=== PATIENT | female | born 2000 | race American Indian/Alaskan Native ===

== ENCOUNTER 2022-03-10 20:18 | Emergency (ER) | payer SELFPAY ==
[2022-03-10] MEDS ORDERED: BUTALB/ACETAMINOPHEN/CAFFEINE TAB PO ONE (21:42)
--- NOTE | 2022-03-10 21:53 | Emergency Department Report ---
HPI - General Chief Complaint: Seizure Time Seen by Provider: 03/10/22 21:29 - HPI HPI: Room 3 The patient is a 21-year-old female present with a chief complaint of seizure. Patient has a history of hemiplegic migraines and epilepsy and per mother has been compliant with her medication. This evening at 1915 the patient started having one of her seizure episodes when she began chewing. The mother tried to wait it out and gave her a total of 30 minutes to see if she stopped however when she continued EMS was called. EMS arrived and states they arrived on scene to find the patient experiencing facial grimacing with bilateral upper extremity tonic-clonic activity. Patient was administered Ativan 2 mg IV to 3 minutes later the seizure activity stopped and 6 minutes later the patient became responsive. In the ED the patient is still postictal with difficulty speaking (normal postictal presentation per mom). Patient complains of a headache and menstrual cramps. ED Past Medical Hx - Past Medical History Hx GERD: Yes Hx Headaches / Migraines: Yes (Hemiplegia migraine) Hx Seizures: Yes Hx Asthma: Yes Additional medical history: Vocal cord dysfunction, - Surgical History Additional Surgical History: Tonsil and adenoidectomy - Family History Family history: no significant - Social History Smoking Status: Never Smoker Substance Use Type: None (Denies illicit drug use) - Medications Home Medications: Home Medications Medication Instructions Recorded Confirmed Last Taken Type Butalb/Acetamin/Caff 50-325-40 2 tab PO Q8HR PRN #20 tablet 03/10/22 Unknown Rx [Fioricet 50-325-40] ED Review of Systems ROS: Stated complaint: SEIZURE Other details as noted in HPI Constitutional: no symptoms reported Eyes: denies: eye pain ENT: denies: throat pain Respiratory: no symptoms reported Cardiovascular: denies: chest pain Endocrine: no symptoms reported Gastrointestinal: abdominal pain Genitourinary: other (Menstrual cramps) Neurological: headache Physical Exam - Physical Exam Vital Signs: Vital Signs 03/10/22 21:03 Temperature 98.2 F Pulse Rate 100 H Respiratory 16 Rate Blood Pressure 120/80 [Right] O2 Sat by Pulse 100 Oximetry Physical Exam: GENERAL: The patient is well-developed well-nourished female lying on stretcher exhibiting her normal procedure dysarthria. [] HEENT: Normocephalic. Atraumatic. Extraocular motions are intact. Patient has moist mucous membranes. NECK: Supple. Trachea midline CHEST/LUNGS: Clear to auscultation. There is no respiratory distress noted. HEART/CARDIOVASCULAR: Regular. There is no tachycardia. There is no gallop rub or murmur. ABDOMEN: Abdomen is soft, nontender. Patient has normal bowel sounds. There is no abdominal distention. SKIN: There is no rash. There is no edema. There is no diaphoresis. NEURO: The patient is awake, alert, and oriented. The patient is cooperative. The patient has no focal neurologic deficits. The patient has slightly dysarthric speech. Cranial nerves II through XII grossly intact. GCS 15 MUSCULOSKELETAL: There is no evidence of acute injury. ED Course Vital Signs 03/10/22 21:03 Temperature 98.2 F Pulse Rate 100 H Respiratory 16 Rate Blood Pressure 120/80 [Right] O2 Sat by Pulse 100 Oximetry - Reevaluation(s) Reevaluation #1: 03/10/22 23:41 Patient ANO x4 this time. Patient denies complaints stating she feels better. ED Medical Decision Making - Lab Data Result diagrams: 03/10/22 22:15 03/10/22 22:15 - Differential Diagnosis Seizure Critical care attestation.: If time is entered above; I have spent that time in minutes in the direct care of this critically ill patient, excluding procedure time. ED Disposition Clinical Impression: Seizure Disposition: 01 HOME / SELF CARE / HOMELESS Is pt being admited?: No Does the pt Need Aspirin: No Condition: Stable Instructions: Epilepsy, [id number] Additional Instructions: Return to the emergency department should you develop worsening symptoms, inability to tolerate food or liquids, high fever or any other concerns Prescriptions: Butalb/Acetamin/Caff 50-325-40 [Fioricet 50-325-40] 2 tab PO Q8HR PRN #20 tablet PRN Reason: Headache Referrals: Dr. Ruffin, your neurologist [Other] - 3-5 Days Time of Disposition: 23:42
[2022-03-10 22:35] LABS: Basophils % (Auto) 0.3 % (0.0-1.8); Eosinophils % (Auto) 0.2 % (0.0-4.3); Hematocrit 38.1 % (30.3-42.9); Lymphocytes # (Auto) 2.3 K/mm3 (1.2-5.4); Lymphocytes % (Auto) 21.4 % (13.4-35.0); Mean Corpuscular HGB Conc 34 % (30-34); Mean Corpuscular Volume 90 fl (79-97); Monocytes # (Auto) 1.1 K/mm3 (0.0-0.8); Monocytes % (Auto) 10.2 % (0.0-7.3); Platelet Count 287 K/mm3 (140-440); Red Blood Count 4.22 M/mm3 (3.65-5.03); Red Cell Distribution Width 12.8 % (13.2-15.2)
[2022-03-10 22:58] LABS: Blood Urea Nitrogen 11 mg/dL (7-17); Calcium 9.2 mg/dL (8.4-10.2); Hemolysis Index 3
[2022-03-10 23:14] LABS: BUN/Creatinine Ratio 18
[2022-03-10 23:54] VITALS: BP 110/69
== END 2022-03-11 00:11 | disposition home or self-care (01) ==
LOC: ED 20:18
DX: R56.9 Unspecified convulsions (principal); J45.909 Unspecified asthma, uncomplicated
CPT/HCPCS: 36415; 80048; 80164; 83735; 84703; 85025; 99283